=== PATIENT | female | born 1950 | race American Indian/Alaskan Native ===

== ENCOUNTER 2018-10-21 07:37 | Outpatient (CLI) | payer BC | END 2018-10-21 07:38 | disposition home or self-care (01) | LOC: RAD 07:37 ==

== ENCOUNTER 2019-01-08 07:44 | Day surgery (SDC) | payer BC ==
[2018-12-31 15:53] VITALS: BMI 27.4
[2019-01-08] MEDS ORDERED: Lidocaine 1% Inj (20ml) ONE (08:21)
[2019-01-08] MEDS ORDERED: Propofol 10 mg/ml Inj (20 ML) ONE (08:22)
[2019-01-08] MEDS ORDERED: Sodium Chloride 0.9% 1,000 ML IV SCH (09:30)
[2019-01-08 09:37] VITALS: RESP 18; TEMP 98; O2SAT 96
[2019-01-08 09:42] VITALS: PULSE 68
[2019-01-08 09:46] VITALS: BP 96/60
== END 2019-01-08 10:49 | disposition home or self-care (01) ==
LOC: ENDO 07:44
PROVIDERS: ATTEND Internal Medicine Gastroenterology
DX: K29.50 Unspecified chronic gastritis without bleeding (principal); B96.81 Helicobacter pylori [H. pylori] as the cause of diseases classified elsewhere; K44.9 Diaphragmatic hernia without obstruction or gangrene; K26.9 Duodenal ulcer, unspecified as acute or chronic, without hemorrhage or perforation; R10.13 Epigastric pain
CPT/HCPCS: 43239; 88305; 88342; J2704; J7030